=== PATIENT | female | born 1955 | race African-American/Black ===

== ENCOUNTER 2016-11-05 15:40 | Emergency (ER) | payer MEDICARE, MEDICAID ==
[~2016-11-05] VITALS: Ht 165.1 cm; Wt 82.0 kg
[~2016-11-05 15:40] MED LIST: GLIPIZIDE; LISINOPRIL; METFORMIN; OMEP2SUS; [UNRECOGNIZED DRUG - OTHER]
[2016-11-05 23:30] VITALS: BP 109/77
== END 2016-11-05 23:45 | disposition home or self-care (01) ==
LOC: ER 15:40
DX: F10.129 Alcohol abuse with intoxication, unspecified (principal); E11.9 Type 2 diabetes mellitus without complications; I10 Essential (primary) hypertension; Z88.6 Allergy status to analgesic agent; Z79.84 Long term (current) use of oral hypoglycemic drugs; Z79.899 Other long term (current) drug therapy
CPT/HCPCS: 36415; 99283; G0482

== ENCOUNTER 2021-02-21 07:55 | Emergency (ER) | payer MEDICARE ==
[~2021-02-21] VITALS: Ht 160 cm; Wt 91.0 kg
[~2021-02-21 07:55] MED LIST changes: +DEXT1DRO6 OP
[2021-02-21 08:15] VITALS: BP 143/74
[2021-02-21] MEDS ORDERED: TETANUS, DIPHTHERIA, PERTUSSIS VAC/PF 0.5ML (>7YR OLD) IM ONE (08:30)
== END 2021-02-21 09:27 | disposition home or self-care (01) ==
LOC: ER 07:55
DX: S61.012A Laceration without foreign body of left thumb without damage to nail, initial encounter (principal); E11.9 Type 2 diabetes mellitus without complications; I10 Essential (primary) hypertension; J45.909 Unspecified asthma, uncomplicated; Z88.6 Allergy status to analgesic agent; W26.0XXA Contact with knife, initial encounter; Y93.89 Activity, other specified; Y92.89 Other specified places as the place of occurrence of the external cause; Y99.8 Other external cause status
CPT/HCPCS: 90471; 90715; 99283

== ENCOUNTER 2022-01-26 11:02 | Emergency (ER) | payer MEDICARE ==
[~2022-01-26] VITALS: Ht 167.6 cm; Wt 89.0 kg
[2022-01-26] MEDS ORDERED: HYDROCODONE/ACETAMINOPHEN 5/325MG TABLET PO ONE (13:30)
[2022-01-26 14:23] VITALS: BP 128/80
== END 2022-01-26 15:43 | disposition home or self-care (01) ==
LOC: ER 11:02
DX: M17.11 Unilateral primary osteoarthritis, right knee (principal)
CPT/HCPCS: 73562; 99283